=== PATIENT | male | born 1955 | race Caucasian/White ===

== ENCOUNTER 2021-07-16 12:31 | Outpatient (CLI) | payer OTHER, SELFPAY ==
[2021-07-15 12:12] VITALS: BMI 52.2
[2021-07-16] VITALS (7 sets, daily range): BP systolic 139–170; BP diastolic 75–102; PULSE 62–97; RESP 18–20; TEMP 36.4–36.8; O2SAT 96–100; BMI 53.0
--- NOTE | 2021-07-16 13:14 | WPDANESEPPF ---
Anes - Initial Pre Proc Eval Procedure: Operation Date: 07/16/21 13:30 Proposed Procedures p Trans Esophageal Echo - Aniket Swanson MD Date/Time: 07/16/21 13:14 Surgeon: Aniket Swanson MD Pre Op Diagnosis: mitral regurgitation, bacteremia Patient Data Age: 65 Gender: M Height: 1.78 m Weight: 165 kg Allergies Allergy/AdvReac Type Severity Reaction Status Date / Time Penicillins Allergy Unknown Verified 07/16/21 13:24 Home Medications Medication Instructions Recorded Confirmed Type amlodipine 5 mg PO DAILY 07/15/21 07/15/21 History aspirin 81 mg PO DAILY 07/15/21 07/15/21 History atorvastatin 20 mg PO DAILY 07/15/21 07/15/21 History clonidine HCl 0.1 mg PO DAILY 07/15/21 07/15/21 History ertugliflozin [Steglatro] 15 mg PO DAILY 07/15/21 07/15/21 History glipizide [Glucotrol] 10 mg PO BID 07/15/21 07/15/21 History indomethacin 50 mg PO PRN PRN 07/15/21 07/15/21 History lisinopril 20 mg PO DAILY 07/15/21 07/15/21 History metformin 1,000 mg PO BID 07/15/21 07/15/21 History tamsulosin 0.4 mg PO DAILY 07/15/21 07/15/21 History Patient hx anesthesia problems: none Family hx anesthesia problems: none Results Review: All pre-operative results and documents have been reviewed as part of the pre-operative evaluation. [facility] Past Medical History Medical History Diabetes type 2, controlled Hyperlipidemia Hypertension Surgical History Surgical History History of gastric bypass 2001 Social History Social History Smoking status: Never smoker Second hand tobacco smoke exposure: No Substance use type: does not use Living arrangements: with family Spiritual care concerns: No Anes - Eval Final PreProcedure Day of Procedure 07/16/21 13:14 Patient weight: super morbidly obese Heart: regular rate and rhythm Lungs: clear to auscultation and normal air movement Airway: Mallampati scale class II Neurological: alert and oriented Last oral intake: >/= 8 hours ASA classification: III Emergent: no Anesthetic plan: proceed Anesthesia type and monitoring: general GIVS and standard monitoring Results Review: All pre-operative results and documents have been reviewed as part of the pre-operative evaluation. Informed Consent: The patient's anesthetic plan and its attendant risks and benefits were discussed with the patient/family/POA. Questions were solicited and answers provided to the satisfaction of the patient/family/POA.
--- NOTE | 2021-07-16 13:51 | P.SEDATION_ITS ---
Moderate Sedation Note-Pt Data Patient Data Diagnosis: bacteremia Present Complaint: bacteremia Procedure to be performed/Plan: GINETTE Allergies Allergy/AdvReac Type Severity Reaction Status Date / Time Penicillins Allergy Unknown Verified 07/16/21 13:24 Home Medications Medication Instructions Recorded Confirmed Type amlodipine 5 mg PO DAILY 07/15/21 07/15/21 History aspirin 81 mg PO DAILY 07/15/21 07/15/21 History atorvastatin 20 mg PO DAILY 07/15/21 07/15/21 History clonidine HCl 0.1 mg PO DAILY 07/15/21 07/15/21 History ertugliflozin [Steglatro] 15 mg PO DAILY 07/15/21 07/15/21 History glipizide [Glucotrol] 10 mg PO BID 07/15/21 07/15/21 History indomethacin 50 mg PO PRN PRN 07/15/21 07/15/21 History lisinopril 20 mg PO DAILY 07/15/21 07/16/21 History metformin 1,000 mg PO BID 07/15/21 07/15/21 History tamsulosin 0.4 mg PO DAILY 07/15/21 07/15/21 History Sedation/Anesthesia: No previous sedation/anesthesia problems (including family history). [facility] Past Medical History Medical History Diabetes type 2, controlled Hyperlipidemia Hypertension Surgical History Surgical History History of gastric bypass 2001 Social History Social History Smoking status: Never smoker Second hand tobacco smoke exposure: No Substance use type: does not use Living arrangements: with family Spiritual care concerns: No Mod Sed Physical Exam Physical Exam Pre Procedural Exam: Normal: Appearance, Eyes, Ears, Nose, Neck, Throat, Airway, Lungs, Heart Size, Heart Rate, Heart Rhythm, Neuro Exam and Extremities Hours since solid foods: 12 Hours since liquid intake: 12 Mallampati Classification: class III Internal Medicine - PN: Obj Da Vital Signs Vital Signs: Vital Signs - 24 hr 07/16/21 13:05 Temperature 36.8 C Pulse Rate 67 Respiratory Rate 18 Blood Pressure 156/102 H Pulse Oximetry 100 ASA Classification/Sedation ASA Classification/Sedation ASA Class: III Emergent: No Risks: Risks, benefits and alternatives explained and patient/family accepted plan for sedation. Patient re-evaluated immediately prior to sedation.
--- NOTE | 2021-07-16 14:30 | WPDTEECHO ---
GINETTE TransEsophageal Echocardiogram Date of procedure: 07/16/21 Procedure Type: 1. Multiplanar transesophageal echocardiography with color flow and pulse wave Doppler 2. Agitated saline study Diagnosis: Bacteremia Indications: Bacteremia Image Quality: Good Findings: Procedure was performed in the GI lab with the assistance of anesthesia. See separate report for anesthesia details. Patient has a history of bacteremia and GINETTE is recommended for evaluation for endocarditis. After establishing continuous telemetry monitoring, pulse oxygenation and serial blood pressure assessments, time-out was taken and the procedure was initiated. Written and verbal informed consent was previously signed. Risks discussed include esophageal rupture perforation, sore throat, bleeding, pain, infection. Anesthesia was provided by the assistance of a of the Anesthesia Department. See separate report for details. Procedure start time 1:54 p.m. procedure stop time 1:59 p.m. Complications: None Blood loss: None Findings: Normal left ventricular size and function with ejection fraction of 60 65%. Normal right ventricular size and function. Mild left atrial enlargement. Normal right atrial size. Atrial septum is intact without agitated saline or color flow evidence of shunting. Left atrial appendage is normal without mass or thrombus with velocities of around 75 centimeters/second. The mitral valve is normal without evidence of endocarditis. There is mild mitral regurgitation. Tricuspid valve is also normal without evidence of tricuspid valve endocarditis. Mild tricuspid regurgitation. The aortic valve is normal and trileaflet. There is no evidence of endocarditis. There is trivial aortic insufficiency. The aortic root is normal in size. Pulmonic valve is normal without obvious evidence of endocarditis. Trivial pulmonic insufficiency. There is no pericardial effusion. Conclusions: 1. Normal left ventricular size and function with ejection fraction of 60-65% 2. Mild tricuspid and mitral regurgitation 3. No evidence of vegetation 4. Mild left atrial enlargement 5. Intact atrial septum with negative agitated saline study
--- NOTE | 2021-07-16 15:37 | SUR.PHASEII ---
Discharge instructions read and given to pt and daughter. Pt and daughter states understanding.
--- NOTE | 2021-07-16 15:45 | SUR.PHASEII ---
Pt discharged by wheelchair out front of building. Daughter driving.
== END 2021-07-16 15:45 | disposition home or self-care (01) ==
LOC: ANHCARD 12:34
PROVIDERS: PCP Family Medicine; Visit Provider Internal Medicine Cardiovascular Disease
PROC: (CPT 93312; principal; 2021-07-16 13:30)
DX: I34.0 Nonrheumatic mitral (valve) insufficiency (principal); R78.81 Bacteremia; I10 Essential (primary) hypertension; E11.9 Type 2 diabetes mellitus without complications
CPT/HCPCS: 93312; 93320; 93325; J2704